=== PATIENT | female | born 1990 | race Caucasian/White ===

== ENCOUNTER 2023-09-24 15:51 | Emergency (ER) | payer OTHER ==
[~2023-09-24] VITALS: Ht 175.3 cm; Wt 77.1 kg
[2023-09-24] MEDS ORDERED: CefTRIAXone 1000 MG Vial IM ONE (16:40)
[2023-09-24] MEDS ORDERED: BACTRIM DS TAB1 EAC2 PO (16:43)
[2023-09-24] MEDS ORDERED: CEPH500 PO (16:43)
== END 2023-09-24 16:53 | disposition home or self-care (01) ==
LOC: ER 15:51
DX: H00.031 Abscess of right upper eyelid (principal); H00.032 Abscess of right lower eyelid; F17.210 Nicotine dependence, cigarettes, uncomplicated
CPT/HCPCS: 96372; 99283-25; J0696

== ENCOUNTER 2024-06-22 19:49 | Emergency (ER) | payer OTHER ==
[~2024-06-22] VITALS: Ht 175.3 cm; Wt 95.2 kg
[~2024-06-22 19:49] MED LIST: BACTRIM DS TAB1 EAC2 PO; CEPH500 PO
[2024-06-22] MEDS ORDERED: Ketorolac Tromethamine 15mg Vial IV ONE (20:05)
[2024-06-22] MEDS ORDERED: Ketorolac Tromethamine 15mg Vial IM ONE (20:45)
== END 2024-06-22 21:44 | disposition home or self-care (01) ==
LOC: ER 19:49
DX: M79.604 Pain in right leg (principal); M79.605 Pain in left leg; E86.0 Dehydration; F17.210 Nicotine dependence, cigarettes, uncomplicated; Z79.899 Other long term (current) drug therapy
CPT/HCPCS: 93971; 96372; 99283-25; J1885

== ENCOUNTER → 2024-07-29 | Outpatient (CLI) | payer OTHER ==
[2024-07-29 20:48] LABS: Bacterial Vaginosis PCR Negative (NEGATIVE); Candida Group, PCR NOT DETECTED (NOT DETECT); Candida glabrata-krusei, PCR NOT DETECTED (NOT DETECT)
[2024-07-29 21:20] LABS: Chlamydia Trachomatis Vaginal NOT DETECTED (NOT DETECT); Neisseria Gonorrhoea Vaginal NOT DETECTED (NOT DETECT)
== END | disposition home or self-care (01) ==
LOC: LAB SHORT 16:41 → LAB 16:41
PROVIDERS: Nurse Practitioner
DX: R30.0 Dysuria (principal); Z20.2 Contact with and (suspected) exposure to infections with a predominantly sexual mode of transmission
CPT/HCPCS: 81515; 87077; 87086; 87186; 87491; 87591